=== PATIENT | female | born 1965 | race Caucasian/White ===

== ENCOUNTER 2022-02-12 17:04 | Emergency (ER) | payer MEDICAID, OTHER ==
[~2022-02-12] VITALS: Ht 165.1 cm; Wt 85.0 kg
[2022-02-12] MEDS ORDERED: ONDANSETRON HCL 4MG/2ML INJ IV STA (17:51)
[2022-02-12] MEDS ORDERED: PANTOPRAZOLE SODIUM 40 MG/VIAL IV STA (17:51)
[2022-02-12] MEDS ORDERED: MORPHINE SULFATE 4 MG/ML CPJ (NOT FOR IM USE) IV STA (17:51)
[2022-02-12] MEDS ORDERED: SODIUM CHLORIDE 0.9% 1,000 ML IV ONE (18:00)
[2022-02-12 18:12] LABS: HEMATOCRIT. 43.9 % (36.0-48.0); HEMOGLOBIN. 14.3 g/dL (12.0-16.0); MEAN CORPUSCULAR HEMOGLOBIN 26.4 pg (28.0-32.0); MEAN CORPUSCULAR VOLUME 81.3 fL (81.0-99.0); MEAN PLATELET VOLUME 8.2 fl (7.4-10.4); PLATELET 288 x1000/uL (130-400); RED CELL DISTRIBUTION WIDTH 14.7 % (11.6-14.6)
[2022-02-12 18:19] LABS: CHLORIDE 107 mEq/L (98-107)
[2022-02-12 20:00] LABS: PLATELET ESTIMATE NORMAL
[2022-02-12] MEDS ORDERED: FAMO-135 PO (21:03)
[2022-02-12 21:47] VITALS: BP 145/76
== END 2022-02-12 21:51 | disposition home or self-care (01) ==
LOC: ER 17:04
DX: R10.9 Unspecified abdominal pain (principal); Z88.0 Allergy status to penicillin
CPT/HCPCS: 36415; 71045; 74176; 76705; 80053; 83690; 85025; 93005; 96361; 96374; 96375; 99285; C9113; J2270; J2405; J7030